=== PATIENT | female | born 1975 | race Hispanic/Latino ===

== ENCOUNTER 2017-10-21 07:39 | Outpatient (CLI) | payer MEDICARE, MEDICAID ==
--- NOTE | 2017-10-21 09:42 | MRI ---
MRA BRAIN WITH 3D VOLUME RENDERING: CLINICAL HISTORY: Brain aneurysm, headache. COMPARISON: No prior imaging comparisons are available. FINDINGS: The imaged distal vertebral, and the basilar artery are unremarkable. The bilateral CASE FILLER are patent. No significant stenosis of either MCA or WILLIAM. Anterior communicating artery is normal in appearance . Imaged distal internal carotid arteries are patent. Within limitations, there are no discrete int racranial aneurysm identified. IMPRESSION: Normal MRA brain exam. POS: [facility]
== END 2017-10-21 07:40 | disposition home or self-care (01) ==
LOC: MRI 07:39
PROVIDERS: ATTEND Psychiatry & Neurology Neurology
DX: I67.1 Cerebral aneurysm, nonruptured (principal)
CPT/HCPCS: 70544

== ENCOUNTER 2017-12-24 10:19 | Outpatient (CLI) | payer MEDICARE, MEDICAID ==
[2017-12-24 10:45] VITALS: BMI 23.3
[2017-12-24 12:28] LABS: #Basophils 0.1 thou/uL (0.0-0.2); #Eosinphils 0.1 thou/uL (0.0-0.7); #Lymphocytes 1.7 thou/uL (1.20-3.40); #Monocytes 0.5 thou/uL (0.11-0.59); %Basophils 0.8 % (0.0-1.0); %Eosinophils 1.1 % (0.0-10.0); %Lymphocytes 27.2 % (21.0-51.0); %Neutrophils 62.9 % (42.0-75.0); Hemoglobin 11.2 g/dL (12.0-16.0); Mean Corpuscular HGB CONC 33.3 g/dL (32.0-36.0); Mean Corpuscular Hemoglobin 33.3 pg (27.0-31.0); Mean Platelet Volume 7.7 fL (7.4-10.4); Platelet Count 253 thou/uL (130-400); RBC Distribution Width 11.4 % (11.5-14.5); Red Blood Cell (RBC) Count 3.37 mill/uL (4.20-5.40); White Blood Cell (WBC) Count 6.3 thou/uL (4.8-10.8)
[2017-12-24 12:43] LABS: Prothrombin Time 13.4 SEC (12.0-14.7)
[2017-12-24 12:50] LABS: ALT (SGPT) 21 U/L (8-55); AST (SGOT) 12 U/L (5-34); Albumin 4.5 g/dL (3.5-5.0); Alkaline Phosphatase 125 U/L (40-150); Anion Gap 16 mmol/L (10-20); BUN (Urea Nitrogen) 45 mg/dL (7.0-18.7); Bilirubin, Total 0.5 mg/dL (0.2-1.2); Calc. Creatinine Clearance 9 mL/min (70-130); Calcium 8.7 mg/dL (7.8-10.44); Carbon Dioxide 31 mmol/L (22-29); Chloride 96 mmol/L (98-107); Estimated GFR-MDRD 5; Globulin 2.8 g/dL (2.4-3.5); Glucose 99 mg/dL (70-105); Potassium 4.6 mmol/L (3.5-5.1); Protein, Total 7.3 g/dL (6.0-8.3); Sodium 138 mmol/L (136-145)
--- NOTE | 2017-12-24 13:36 | RAD ---
RADIOGRAPH CHEST TWO VIEW SERIES: INDICATIONS: Pre-admission evaluation. COMPARISON: 11/01/2016 FINDINGS: Right-sided tunneled vascular catheter remains. No consolidation, effusion, or pneumothorax. The ca rdiac silhouette is at the upper limits of normal in size. There is S-shaped scoliosis of the thorac olumbar spine. IMPRESSION: No focal consolidation. POS: [facility]
--- NOTE | 2018-01-20 11:06 | EKG ---
Test Reason : Blood Pressure : / mmHG Vent. Rate : 070 BPM Atrial Rate : 070 BPM P-R Int : 170 ms QRS Dur : 112 ms QT Int : 456 ms P-R-T Axes : 081 -62 -09 degrees QTc Int : 492 ms Normal sinus rhythm Left axis deviation T wave abnormality, consider lateral ischemia Abnormal ECG When compared with ECG of 07-NOV-2016 20:19, Vent. rate has decreased BY 60 BPM Confirmed by MAILE SLAUGHTER M.D. ([id number]) on 01/20/2018 11:06:00 AM Referred By: SUKHJINDER Confirmed By:MAILE SLAUGHTER M.D.
== END 2017-12-24 10:20 | disposition home or self-care (01) ==
LOC: LABBT 10:19
PROVIDERS: ATTEND Internal Medicine Cardiovascular Disease
DX: Z01.818 Encounter for other preprocedural examination (principal); I42.0 Dilated cardiomyopathy
CPT/HCPCS: 71046; 80053; 85025; 85610; 85730; 93005; 93010

== ENCOUNTER 2017-12-26 07:56 | Day surgery (SDC) | payer MEDICARE, MEDICAID ==
[2017-12-24 11:12] VITALS: BMI 22.8
[2017-12-26] MEDS ORDERED: Lidocaine 1% (PF) 30 ML VIAL ONE (09:16)
[2017-12-26 09:25] LABS: Cardiac Risk 5.1 (Less than 4.5)
[2017-12-26] MEDS ORDERED: Ondansetron HCl/PF 4 MG/2 ML Vial ONE (10:07)
[2017-12-26] MEDS ORDERED: Midazolam HCl 2 mg/2 ml Vial ONE (10:08)
[2017-12-26] MEDS ORDERED: Fentanyl 250 MCG/5 ML VIAL ONE (10:08)
[2017-12-26] MEDS ORDERED: Iopamidol 370 76% 100 ML VIAL ONE (10:25)
--- NOTE | 2017-12-26 16:20 | CON ---
DATE OF CONSULTATION: 12/26/2017 REASON FOR CONSULTATION: Evaluate the patient for coronary bypass grafting. HISTORY OF PRESENT ILLNESS: Ms. Graham is a 42-year-old woman who presented electively for cardiac cath eterization today. Dr. Acosta performed her catheterization. She was found to have a critical LAD d iagonal bifurcation disease. On ventriculogram, ejection fraction is 30%-35%. I have been asked to see her to discuss coronary bypass grafting. PAST MEDICAL HISTORY: 1. End-stage renal disease secondary to polycystic kidneys. 2. Hypertension. PAST SURGICAL HISTORY: 1. Right jugular Perm-A-Cath. 2. Two C-sections. 3. Ectopic . 4. Attempt at left radial fistula. ALLERGIES: IODINE, LISINOPRIL. HOME MEDICATIONS: 1. Prednisone 50 mg b.i.d. 2. Metoprolol 25 mg b.i.d. 3. Sensipar 30 mg p.r.n. SOCIAL HISTORY: She has 2 children at home. REVIEW OF SYSTEMS: Ten point review of systems performed and is negative except as stated above. PHYSICAL EXAMINATION: GENERAL: This is a well-developed, well-nourished woman resting comfortably in the recovery area. VITAL SIGNS: Her cardiac rhythm is sinus. She has a heart rate of 60 and is regular. Blood pressur e 127/83. HEENT: Sclerae nonicteric. Pupils equal and round bilaterally. NECK: Supple, without bruit. CHEST: Clear bilaterally. She has a right chest wall Perm-A-Cath exiting that appears to pass into her jugular vein, which is used for dialysis. HEART: Rhythm is regular. LUNGS: Clear bilaterally. ABDOMEN: Soft and nontender. EXTREMITIES: No edema. VASCULAR: She has palpable carotid, radial, femoral, dorsalis pedis pulses bilaterally. VENOUS: There are no venous varicosities or venous stasis changes. PSYCHIATRIC: The patient is awake, alert, and oriented to person, place, and time. ASSESSMENT AND PLAN: This is a pleasant 42-year-old woman with end-stage renal disease, on hemodialy sis, and hypertension. She has no tobacco use history in the last 20 years. She has LAD diagonal bi furcation disease with depressed left ventricular function. I have discussed off-pump coronary arter y bypass grafting utilizing saphenous vein to her diagonal and left internal mammary artery to LAD. Risks, benefits, and options have been outlined. She is agreeable to proceed and will call our offic e to schedule.
== END 2017-12-26 16:16 | disposition home or self-care (01) ==
LOC: CCL 07:56
PROVIDERS: ATTEND Internal Medicine Cardiovascular Disease
PROC: 4A023N7 Measurement of Cardiac Sampling and Pressure, Left Heart, Percutaneous Approach (ICD-10-PCS; principal; 2017-12-26)
PROC: B2151ZZ Fluoroscopy of Left Heart using Low Osmolar Contrast (ICD-10-PCS; 2017-12-26)
DX: I42.0 Dilated cardiomyopathy (principal); I25.10 Atherosclerotic heart disease of native coronary artery without angina pectoris; I12.0 Hypertensive chronic kidney disease with stage 5 chronic kidney disease or end stage renal disease; N18.6 End stage renal disease; Q61.3 Polycystic kidney, unspecified; Z99.2 Dependence on renal dialysis; Z79.52 Long term (current) use of systemic steroids; Z79.899 Other long term (current) drug therapy; Z88.8 Allergy status to other drugs, medicaments and biological substances; Z91.041 Radiographic dye allergy status
CPT/HCPCS: 80061; 93458; C1769; 99152; 99153; J1644; J2001; J2250; J2405; J3010